=== PATIENT | male | born 1960 | race Caucasian/White ===

== ENCOUNTER 2018-09-10 08:35 | Day surgery (SDC) | payer BC ==
[~2018-09-10 08:35] MED LIST: ACETAMINOPHEN 1,000 MG/100 ML BTL IVPB ONE
[2018-09-10] MEDS ORDERED: MIDAZOLAM HCL 2MG/2ML VIAL IV ONE (08:36)
[2018-09-10] MEDS ORDERED: DEXAMETHASONE 4 MG/ML 1ML VIAL IVP ONE (08:36)
[2018-09-10] MEDS ORDERED: FENTANYL PF 100MCG/2ML VIAL IV ONE (08:36)
[2018-09-10] MEDS ORDERED: SEVOFLURANE 250 ML INH ONE (08:36)
[2018-09-10] MEDS ORDERED: PROPOFOL 10 MG/ML VIAL IV ONE (08:36)
[2018-09-10] MEDS ORDERED: GLYCOPYRROLATE 0.2 MG/ML ML IV ONE (08:36)
[2018-09-10] MEDS ORDERED: LIDOCAINE 2% MDV (20MG/ML) 20ML VIAL IV ONE (08:36)
[2018-09-10] MEDS ORDERED: ONDANSETRON HCL IV 4 MG/2 ML VIAL IVP ONE (08:36)
[2018-09-10] MEDS ORDERED: RINGERS SOLUTION,LACTATED 1,000 ML IV ONE ×2 (09:30)
[2018-09-10] MEDS ORDERED: BUPIVACAINE 0.25% W/EPI MPF 30ML VIAL SQ ONE (10:53)
--- NOTE | 2018-09-11 13:40 | Operative Note ---
DATE OF SURGERY: 09/10/2018 SURGEON: Ankit Gao DO PREOPERATIVE DIAGNOSIS: Osteoarthritis of the right knee. POSTOPERATIVE DIAGNOSES: 1. Torn medial meniscus, right knee. 2. Osteoarthritis, right knee. OPERATION: 1. Arthroscopic partial medial meniscectomy, right knee. 2. Arthroscopic chondroplasty of the patella, medial femoral condyle, lateral femoral condyle, and trochlea, right knee. DESCRIPTION OF PROCEDURE: This 57-year-old male was taken to the operating suite and placed in the supine position on the operating room table. A general anesthetic was administered, and the right lower extremity was elevated. It was exsanguinated, and the tourniquet inflated to 300 mmHg. Arthroscopic knee white applied. Right knee prepped with Hibiclens and draped in the usual sterile fashion. An inferolateral portal was established for the 4 mm arthroscope, and initial evaluation demonstrated advanced osteoarthritis in the patellofemoral joint. The medial compartment was entered, and advanced osteoarthritic change noted of the medial femoral condyle with a tear of the medial meniscus also being identified. We used the rotating shaver and basket forceps to resect to the apex of the meniscal tear at about the 2-o'clock position and then tapered in each direction to a smooth contoured meniscus. Grade 3 chondromalacia of the medial femoral condyle was present, and a rotating shaver was used to smooth and taper the articular cartilage in the medial femoral condyle. The lateral femoral condyle was evaluated, and there was advanced degenerative disease there as well with large chunks of articular cartilage missing in the center of the weightbearing surface. This lesion covered the entire articulating surface of the lateral femoral condyle. This was a severe grade 3 lesion. The lateral meniscus was probed and found to be normal. Chondroplasty was performed to stabilize the remaining articular cartilage of the lateral femoral condyle. There was also advanced loosening and fragmentation of the articular cartilage of the patellofemoral joint with severe grade 3 changes noted in both of those surfaces. It was smoothed and contoured to a stable articular cartilage. The joint was copiously irrigated and suctioned. All instruments were removed. The portals infiltrated with 0.25% Marcaine with epinephrine. Sterile dressings applied, tourniquet and knee white released, and the patient taken to the recovery room in satisfactory condition. GROSS PATHOLOGY: This patient had a tear of the medial meniscus with the apex at about the 2-o'clock position. In addition, severe grade 3 chondromalacia was noted at the patella, medial femoral condyle, lateral femoral condyle, and trochlea of the right knee. CC: 09/10/2018 [facility]
== END 2018-09-10 12:00 | disposition home or self-care (01) ==
LOC: SUR 08:35
PROVIDERS: ATTEND Orthopaedic Surgery
DX: S83.241A Other tear of medial meniscus, current injury, right knee, initial encounter (principal); I10 Essential (primary) hypertension; E78.00 Pure hypercholesterolemia, unspecified
CPT/HCPCS: 29881; 01400; 93005; J2405; J3010; J7120